=== PATIENT | female | born 1945 | race Caucasian/White ===

== ENCOUNTER 2023-10-22 21:27 | Emergency (ER) | payer MEDICARE, OTHER, SELFPAY ==
--- NOTE | 2023-10-22 21:30 | RT.EKG_ITS ---
APPROVED REPORT Exam: Resting ECG Reason for Exam: NOSE BLEED Patient Location: E HR:81 bpm ECG Measurements Heart Rate 81 AXIS SD 146 P -10 QRSd 79 QRS 7 QT 390 T 40 QTc 455 Conclusion Sinus rhythm...normal P axis, V-rate 60- 99 Consider left ventricular hypertrophy...(R aVL+S V3) >2.20mV Physician: no stemi
[2023-10-22 21:42] VITALS: BP 160/75; PULSE 82; RESP 16; TEMP 36.2; O2SAT 98
--- NOTE | 2023-10-22 22:00 | DI.CT_ITS ---
Exam(s) CT HEAD CERV SPINE FACIAL WO EXAM: CT HEAD CERV SPINE FACIAL WO CLINICAL HISTORY: fall, hit nose, r/o bleed/fx. TECHNIQUE: Imaging Protocol: Axial computed tomography images with coronal and sagittal reformatted images were created and reviewed COMPARISON: No exams were available for comparison FINDINGS: CT Head: Ventricles and Extra axial spaces: Normal in size and morphology for the patient's age. Hemorrhage: None. Cerebral parenchyma: There are areas of decreased attenuation in the white matter consistent with chr onic microvascular ischemic disease. No acute territorial infarct is seen at this time. Midline shift: None. Brainstem/Cerebellum: Normal. Calvarium: Normal. Visualized Paranasal sinuses/Mastoids: Clear. Soft Tissues: Unremarkable. CT Face: Facial Bones: There is a mildly depressed and comminuted nasal bone fracture. Sinuses and Mastoids: Unremarkable. Globes, extraocular muscles, optic nerves and retrobulbar fat: Normal. Upper aerodigestive tract: Normal. Mandible and bilateral temporomandibular joints: Normal. Soft tissues: There is soft tissue swelling seen over the bridge of the nose. CT Cervical Spine: Bones: No acute fracture or subluxation. Age-appropriate degenerative changes are seen in the cervica l spine characterized by joint space narrowing and endplate osteophytes. 1-2 mm anterolisthesis of C 7 on T1 is noted. Soft Tissues: Unremarkable. Lung Apices: Clear. IMPRESSION: 1. No acute intracranial process. 2. No acute fracture or subluxation in the cervical spine. 3. Mildly depressed nasal bone fracture with associated soft tissue swelling. RADIATION DOSE DELIVERED: 1,682.08mGy.cm Total DLP DATA REPOSITORY: All CT scans at this facility are submitted to the National Radiology Data Registry (NRDR) Dose Index Registry (DIR) with the [employer] (A[employer]). RADIATION OPTIMIZATION: All CT scans at this facility use at least one of these dose optimization te chniques: automated exposure control; mA and/or kV adjustment per patient size (includes targeted exa ms where dose is matched to clinical indication); or iterative reconstruction.
--- NOTE | 2023-10-22 22:22 | ED.GENADUL_ITS ---
Discharge Plan Disposition Patient Disposition: Home Condition: Good Discharge Details Clinical Impression: Closed fracture nasal bone, Fall, Laceration of nose Primary Care Provider: Giuseppe Jordan ED Provider: Gavin Cleaning Home Meds and New Rx's Prescriptions: No Action cholecalciferol (vitamin D3) 50 mcg (2,000 unit) capsule 50 mcg PO DAILY biotin 5,000 mcg tablet,chewable PO DAILY elderberry fruit 200 mg capsule 200 mg PO DAILY ascorbic acid (vitamin C) 250 mg tablet 250 mg PO DAILY calcium carbonate [Calcium 500] 500 mg calcium (1,250 mg) tablet,chewable 500 mg PO DAILY cyanocobalamin (vitamin B-12) 1,000 mcg capsule 1,000 mcg PO DAILY vitamin E (dl, acetate) 180 mg (400 unit) capsule 180 mg PO DAILY multivitamin Tablet 1 tab PO DAILY zinc gluconate 10 mg lozenge 15 mg PO DAILY Qty: 100 0RF aspirin 81 mg tablet,delayed release (DR/EC) 81 mg PO DAILY Discharge Instructions Instructions: Nasal Fracture (ED) Additional Instructions: At this time you have evidence of a broken nose. This will take a few weeks to heal. Do not blow your nose. Please take the brief course of Keflex antibiotic as directed on the bottle. Please take Tylenol as needed for pain. A single suture was placed in the laceration on your nose. This will fall out on its own in about 7 to 10 days. Please keep the area clean and dry. Monitor closely for any redness, drainage or discharge. For long-term scar cosmesis, please make sure to avoid any sun to the area for the next year. Apply moisturizer or vitamin E to the area twice daily for the next 12 months for the best chance of wound/scar medication. Please take a daily multivitamin as well as this can help in wound healing. Additionally there was evidence of chronic problems/infections noted in your teeth. Please follow-up closely with your dentist for management of this. If you notice any worsening of your symptoms, or any new symptoms such as vomiting, diarrhea, fever, chills, shortness of breath, chest pain, numbness, weakness, or fainting , please return immediately to the emergency department for reevaluation. Please follow up with your primary care provider as soon as possible for reassessment and reevaluation. As always, it was a pleasure participating in your medical care today. Referrals: Giuseppe Jordan NP [Primary Care Provider] - [facility] General Date/Time Provider Initiated Documentation: 10/22/23 22:[address] [facility] Narrative: This is a 77-year-old female with no significant past medical history who does take multiple vitamins but does not take any aspirin anymore or any other blood thinners who presents today for evaluation after fall. Patient states that she was at [employer]. when she took a misstep, fell forward and landed right on her nose and her glasses. Her hands were hit in her pockets at the time, and so she was not able to catch her fall at all. She recalls the entire event, and denies any loss of consciousness. She denies any significant head pain but does admit to some mild nose soreness. No vision changes, no chest abdomen or extremity pain. She did scrape up her knees slightly, but denies any pain in that area. No other complaints at this time. No other modifying factors. Patient's last tetanus was within the last 5 years. Related Data Home Medications Medication Instructions Recorded Confirmed ascorbic acid (vitamin C) 250 mg 250 mg PO DAILY 05/16/23 08/09/23 tablet aspirin 81 mg tablet,delayed 81 mg PO DAILY 05/16/23 08/09/23 release biotin 5,000 mcg chewable tablet mcg PO DAILY 05/16/23 08/09/23 calcium carbonate (Calcium 500) 500 mg PO DAILY 05/16/23 08/09/23 cholecalciferol (vitamin D3) 50 50 mcg PO DAILY 05/16/23 08/09/23 mcg (2,000 unit) capsule cyanocobalamin (vitamin B-12) 1,000 mcg PO DAILY 05/16/23 08/09/23 1,000 mcg capsule elderberry fruit 200 mg capsule 200 mg PO DAILY 05/16/23 08/09/23 multivitamin 1 tab PO DAILY 05/16/23 08/09/23 vitamin E (dl, acetate) 180 mg 180 mg PO DAILY 05/16/23 08/09/23 (400 unit) capsule zinc gluconate 10 mg lozenges 15 mg PO DAILY #100 ea 05/16/23 08/09/23 Previous Rx's Medication Instructions Recorded zinc gluconate 10 mg lozenges 15 mg PO DAILY #100 ea 12/28/23 Allergies Allergy/AdvReac Type Severity Reaction Status Date / Time No Known Allergies Allergy Verified 10/22/23 22:56 General Stated Complaint: Fall/Non TraumaCriteria RORY: 3 Review of Systems All systems reviewed & are unremarkable except as noted in HPI and below Exam Narrative Exam Narrative: 1.Const: Well-nourished, Well-developed, appearing stated age 2.Eyes: PERRL, no conjunctival injection, and symmetrical lids. 3.ENT: Atraumatic external ears. Moist MM. Neck: Symmetric, trachea midline, No thyromegaly. There is no evidence of raccoon eyes, valencia sign, CSF rhinorrhea, mastoid tenderness, cranial crepitus, hemotympanum, exophthalmos, or hyphema. Patient demonstrates intact dentition with no signs of tooth avulsion or fracture, no signs of jaw deformity, no evidence of a LeFort's fracture, with an intact palate, nose and orbital region. There is no evidence of a nasal septal hematoma that I can visualize. No proptosis. Jaw closes symmetrically. Airway is clear. There is evidence of trauma to the nasal bridge with a small abrasion with laceration that is about 5 mm in diameter. Notable swelling and tenderness over the nose and the bridge of the nose. No other lacerations of the face or scalp or eyes. 4.CVS: Regular rate and rhythm, Normal s1 and s2. No murmurs, carotid bruits, rubs, or gallops. Radial pulses 2+ bilaterally and symmetric. Dorsalis pedis pulses 2+ bilaterally and symmetric. 2+ capillary refill. No evidence of distant heart sounds. No extremity edema. No evidence of gross hemorrhage. 5.RESP: Airway clear, no obstructions. No abrasions or ecchymosis. Chest movement symmetric with respirations. No chest wall tenderness. Trachea midline. No crepitus. No step offs. No paradoxical movements. Lungs are clear to auscultation bilaterally. No rales, rhonchi, wheezing or stridor. Breath sound symmetric. No Sucking chest wounds. No clinical evidence of significant chest trauma. 6.GI: Soft, nondistended, nontender. Bowel tones normoactive. No masses or organomegaly. No ecchymosis or abrasions. No periumbilical ecchymosis or seatbelt sign. No flank or CVA tenderness. No clinical signs of significant trauma. No clinical evidence of significant abdominal trauma. 7.MSK: No gross deformities or discolorations or lesions. Tolerates full range of motion of extremities without tenderness. All compartments of upper and lower extremities are soft with no tenderness. Vascular exam demonstrates brisk capillary refill and intact pulses in all extremities. Pelvic exam demonstrates a stable pelvis, nontender to lateral compression and palpation of symphysis pubis.. No clinical evidence of significant musculoskeletal trauma. 8.Skin: Warm, Dry. No rashes or lesions. Minimal abrasions over the knees. 9.Neuro: orchestra teacher II-XII grossly intact. Sensation grossly intact, no focal neurologic deficits. 10.Psych: (AAO) x3. Appropriate mood and affect Course Vital Signs Vital signs: Vital Signs Temperature 36.2 C L 10/22/23 21:42 Pulse 82 10/22/23 21:42 Respiratory Rate 16 10/22/23 21:42 Blood Pressure 160/75 H 10/22/23 21:42 Pulse Oximetry 98 10/22/23 21:42 Temperature 36.2 C L 10/22/23 21:42 Temperature Source Skin 10/22/23 21:42 Pulse 82 10/22/23 21:42 Respiratory Rate 16 10/22/23 21:42 Respiratory Effort Normal, Non-Labored 10/22/23 21:48 Blood Pressure 160/75 H 10/22/23 21:42 Blood Pressure Position Sitting 10/22/23 21:42 Pulse Oximetry 98 10/22/23 21:42 Oxygen Delivery Method Room Air 10/22/23 21:42 Oxygen Flow Rate 0 10/22/23 21:42 Pain Level 5 10/22/23 21:42 Procedures Laceration Laceration 1: Site: face Size (cm): 0.5 Description: linear Depth: simple, single layer Local Anesthetic: Lidocaine 1% and with Epi Amount of anesthesia used (mL): 2 Pre-repair: wound explored, irrigated extensively and deep structures intact Skin layer closed with: other (Chromic Gut) Size (cm): 5-0 Number of sutures: 1 Medical Decision Making This is a 77-year-old female with no significant past medical history who does take multiple vitamins but does not take any aspirin anymore or any other blood thinners who presents today for evaluation after fall. Patient states that she was at [employer] when she took a misstep, fell forward and landed right on her nose and her glasses. Her hands were hit in her pockets at the time, and so she was not able to catch her fall at all. She recalls the entire event, and denies any loss of consciousness. She denies any significant head pain but does admit to some mild nose soreness. No vision changes, no chest abdomen or extremity pain. She did scrape up her knees slightly, but denies any pain in that area. No other complaints at this time. No other modifying factors. Patient's last tetanus was within the last 5 years. Exam demonstrates evidence of swelling, hematoma contusion and a small abrasion with laceration on the bridge of the nose. Minimal abrasions over the knees, but no other evidence of trauma. No cervical thoracic or lumbar spine tenderness. Due to the patient's age and mechanism we will get a CT scan of the head, face and cervical spine, we will suture her laceration, monitor closely and reassess. [address] scan of the head negative for acute process per the brain. Mild hematomas noted, fractured nose/nasal bone. Poor dentition with some periapical abscesses that are present on CT, however on exam I do not see evidence of Ludewig's angina or large periapical abscess needing drainage. Patient does have poor dentition which is present on exam, however she does have an appointment with her dentist coming up in the next few weeks. She will continue to follow with them. No other acute process otherwise. Single simple interrupted suture was placed with absorbable stitches on the patient's brow. Patient tolerated this well. She was able to stand and ambulated well throughout the department, no focal neurologic deficits on reassessment. Patient will be discharged home. Discussed red flags which return. Plan of care family FINDINGS: Brain: Basal ganglia calcification is present. This may be physiologic. Other considerations are prior infection, thyroid/parathyroid disease or inherited metabolic conditions. There is mild diffuse heterogeneity of the white matter attenuation, consistent with chronic white matter microangiopathic ischemic changes. There is mild diffuse cerebral atrophy present. There is no evidence of intracranial hemorrhage. There is no evidence of acute intracranial injury or other pathologic process. There is no evidence of an acute ischemic event. Cerebral ventricles: The ventricular system demonstrates mild diffuse compensatory enlargement. Paranasal sinuses: There is no evidence of fluid levels, mucoperiosteal thickening, or opacification to suggest acute or chronic sinusitis. Mastoid air cells: The mastoid aircells are normal. Orbital cavities: The orbits are normal without evidence of fracture. There is no evidence of retrobulbar hemorrhage. There is no evidence of globe or lens injury. Bones: The bony cranium shows no evidence of injury or other acute pathologic processes. Soft tissues: Mild soft tissue scalp swelling at the left frontal/superior temporal region. IMPRESSION: 1. No evidence of an acute intracranial abnormality. 2. There is mild age-related atrophy and chronic white matter ischemic changes, with compensatory ventricular dilation. 3. Mild soft tissue scalp swelling at the left frontal/superior temporal region FINDINGS: Orbital cavities: There are drusen present at the orbits bilaterally. The orbits are normal without evidence of fracture. There is no evidence of retro-bulbar hemorrhage. There is no evidence of globe or lens injury. Paranasal sinuses: There is no evidence of fluid levels, mucoperiosteal thic kening, or opacification to suggest acute or chronic sinusitis. Mastoid air cells: The mastoid aircells are normal. Dental: There is poor dentition with multiple teeth missing. There is a periapical abscess present within the last molar the right lower alveolar ridge. Additional periapical abscess present within the right upper alveolar ridge image 32 series 13. There are active dental caries present. Bones: There is a minimally displaced fracture of the nasal bones. No evidence of fractures of the remaining, facial bones or mandible. The TMJs are articulated. Soft tissues: There is nasal and perinasal soft tissue swelling present. There is perioral and anterior mandibular soft tissue swelling present. IMPRESSION: 1. There is a minimally displaced fracture of the nasal bones. 2. There is nasal and perinasal soft tissue swelling present. 3. There is perioral and anterior mandibular soft tissue swelling present. 4. No evidence of fractures of the remaining, facial bones or mandible. 5. There is poor dentition with multiple teeth missing. There is a periapical abscess present within the last molar the right lower alveolar ridge. Additional periapical abscess present within the right upper alveolar ridge image 32 series 13. There are active dental caries present. FINDINGS: Bones: There is no evidence of acute vertebral body element or posterior vertebral element fracture. The anterior posterior borders of the vertebral bodies are in good alignment. No evidence of acute subluxation. No evidence of acute compression fractures. There are moderate to severe degenerative changes of the cervical spine. [id number] neurforaminal narrowing secondary to degenerative changes present. Mild narrowing of the central spinal canal secondary to degenerative changes. There is no evidence of acute disc injury. The spinal canal and cord are otherwise normal. The visualized portions of the skull base and brain are unremarkable. Lungs: The visualized portions of the lung apices are unremarkable. Lymph nodes: There is no evidence of lymphadenopathy. Soft tissues: The prevertebal, paravertebral, pharyngeal, hypopharyngeal, and laryngeal soft tissue structures are unremarkable. IMPRESSION: 1. There is no evidence of acute vertebral body element or posterior vertebral element fracture. 2. The anterior posterior borders of the vertebral bodies are in good alignment. No evidence of acute subluxation. 3. There are moderate to severe degenerative changes of the cervical spine. 4. There is no evidence of acute disc injury. Thank you for allowing us to participate in the care of your patient. Dictated and Authenticated by: Kemar Ruth MD 10/22/2023 11:14 PM Eastern Time ([place] & [place]) Quality:SDOH Health Related Social Needs: Health related social needs inadequate housing Health related social needs details N/A PFSH All Active Problems (Updated 10/22/23 @ 23:30 by Gavin Cleaning DO) Laceration of nose (Acute) Fall (Acute) Closed fracture nasal bone (Acute) Tremor of both hands (Acute) Family History Mother Dementia Father Dementia Brother Cancer Son Alcohol use disorder Social History Smoking/Tobacco Use Status: Never Second Hand Exposure: No Smoking risk assessment performed?: Yes Alcohol Intake: never Drug use: Never Substance use type: does not use Adopted: No Caregiver/Support person: No Foster care: No Household members: none Housing: apartment Number of Children: 1 number of grandchildren: 7 Communication Needs: None Education Level: college Details: 2 years Do you need help understanding health information?: Never current occupation: Retired/ house keeper Pets and animals: No Sexually active: No Do you think of yourself as: straight/heterosexual Current gender identity: female What is your relationship status?: How often do you talk on the phone with friends or family?: three or more times per week How often do you get together with friends or relatives?: three or more times per week How often do you attend bahai or religion services?: decline to answer Do you belong to any clubs or organized social groups?: yes Panel score (0-1 are the most socially isolated patients): 2 What type of physical activity do you participate in: regular exercise and other Details: Ballet Duration: 45-60 minutes/day Frequency: 3-4 times per week Aziza/Restorationist: Non sabianist Special aziza needs: No Agree to transfusion: Yes Seatbelt use: always Helmet use: No Drive intox or ride w/intox intermodal owner operator truck driver: No Working smoke detector in home: Yes Firearms in home: No Do you feel safe at home: Yes Do you feel safe in your relationship?: Yes Victim of physical abuse: No Victim of emotional abuse: No Victim of sexual abuse: No Would you like helpful sources: No
[2023-10-22] MEDS: Lidocaine/Epinephri/Tetracaine Topical Gel 3 ML TP (22:24)
--- NOTE | 2023-10-22 23:14 | DI.VRAD_ITS ---
PROCEDURE INFORMATION: Exam: CT Head Without Contrast Exam date and time: 10/22/2023 10:40 PM Age: 77 years old Clinical indication: Injury or trauma; Blunt trauma (contusions or hematomas); Consciousness not specified; Injury date: 10/22/23; Injury details: Fall, hit nose, R/O bleed, FX TECHNIQUE: Imaging protocol: Computed tomography of the head without contrast. Radiation optimization: All CT scans at this facility use at least one of these dose optimization techniques: automated exposure control; mA and/or kV adjustment per patient size (includes targeted exams where dose is matched to clinical indication); or iterative reconstruction. COMPARISON: No relevant prior studies available. FINDINGS: Brain: Basal ganglia calcification is present. This may be physiologic. Other considerations are prior infection, thyroid/parathyroid disease or inherited metabolic conditions. There is mild diffuse heterogeneity of the white matter attenuation, consistent with chronic white matter microangiopathic ischemic changes. There is mild diffuse cerebral atrophy present. There is no evidence of intracranial hemorrhage. There is no evidence of acute intracranial injury or other pathologic process. There is no evidence of an acute ischemic event. Cerebral ventricles: The ventricular system demonstrates mild diffuse compensatory enlargement. Paranasal sinuses: There is no evidence of fluid levels, mucoperiosteal thickening, or opacification to suggest acute or chronic sinusitis. Mastoid air cells: The mastoid aircells are normal. Orbital cavities: The orbits are normal without evidence of fracture. There is no evidence of retro-bulbar hemorrhage. There is no evidence of globe or lens injury. Bones: The bony cranium shows no evidence of injury or other acute pathologic processes. Soft tissues: Mild soft tissue scalp swelling at the left frontal/superior temporal region. IMPRESSION: 1. No evidence of an acute intracranial abnormality. 2. There is mild age-related atrophy and chronic white matter ischemic changes, with compensatory ventricular dilation. 3. Mild soft tissue scalp swelling at the left frontal/superior temporal region. PROCEDURE INFORMATION: Exam: CT Maxillofacial Without Contrast Exam date and time: 10/22/2023 10:40 PM Age: 77 years old Clinical indication: Injury or trauma; Blunt trauma (contusions or hematomas); Consciousness not specified; Injury date: 10/22/23; Injury details: Fall, hit nose, R/O bleed, FX TECHNIQUE: Imaging protocol: Computed tomography of the face without contrast. Radiation optimization: All CT scans at this facility use at least one of these dose optimization techniques: automated exposure control; mA and/or kV adjustment per patient size (includes targeted exams where dose is matched to clinical indication); or iterative reconstruction. COMPARISON: No relevant prior studies available. FINDINGS: Orbital cavities: There are drusen present at the orbits bilaterally. The orbits are normal without evidence of fracture. There is no evidence of retro-bulbar hemorrhage. There is no evidence of globe or lens injury. Paranasal sinuses: There is no evidence of fluid levels, mucoperiosteal thickening, or opacification to suggest acute or chronic sinusitis. Mastoid air cells: The mastoid aircells are normal. Dental: There is poor dentition with multiple teeth missing. There is a periapical abscess present within the last molar the right lower alveolar ridge. Additional periapical abscess present within the right upper alveolar ridge image 32 series 13. There are active dental caries present. Bones: There is a minimally displaced fracture of the nasal bones. No evidence of fractures of the remaining, facial bones or mandible. The TMJs are articulated. Soft tissues: There is nasal and perinasal soft tissue swelling present. There is perioral and anterior mandibular soft tissue swelling present. IMPRESSION: 1. There is a minimally displaced fracture of the nasal bones. 2. There is nasal and perinasal soft tissue swelling present. 3. There is perioral and anterior mandibular soft tissue swelling present. 4. No evidence of fractures of the remaining, facial bones or mandible. 5. There is poor dentition with multiple teeth missing. There is a periapical abscess present within the last molar the right lower alveolar ridge. Additional periapical abscess present within the right upper alveolar ridge image 32 series 13. There are active dental caries present. PROCEDURE INFORMATION: Exam: CT Cervical Spine Without Contrast Exam date and time: 10/22/2023 10:40 PM Age: 77 years old Clinical indication: Injury or trauma; Blunt trauma (contusions or hematomas); Consciousness not specified; Injury date: 10/22/23; Injury details: Fall, hit nose, R/O bleed, FX TECHNIQUE: Imaging protocol: Computed tomography of the cervical spine without contrast. Radiation optimization: All CT scans at this facility use at least one of these dose optimization techniques: automated exposure control; mA and/or kV adjustment per patient size (includes targeted exams where dose is matched to clinical indication); or iterative reconstruction. COMPARISON: No relevant prior studies available. FINDINGS: Bones: There is no evidence of acute vertebral body element or posterior vertebral element fracture. The anterior posterior borders of the vertebral bodies are in good alignment. No evidence of acute subluxation. No evidence of acute compression fractures. There are moderate to severe degenerative changes of the cervical spine. [id number] neurforaminal narrowing secondary to degenerative changes present. Mild narrowing of the central spinal canal secondary to degenerative changes. There is no evidence of acute disc injury. The spinal canal and cord are otherwise normal. The visualized portions of the skull base and brain are unremarkable. Lungs: The visualized portions of the lung apices are unremarkable. Lymph nodes: There is no evidence of lymphadenopathy. Soft tissues: The prevertebal, paravertebral, pharyngeal, hypopharyngeal, and laryngeal soft tissue structures are unremarkable. IMPRESSION: 1. There is no evidence of acute vertebral body element or posterior vertebral element fracture. 2. The anterior posterior borders of the vertebral bodies are in good alignment. No evidence of acute subluxation. 3. There are moderate to severe degenerative changes of the cervical spine. 4. There is no evidence of acute disc injury. Dictated and Authenticated by: Kemar Ruth MD. Ordering:PABLO Alonso MD
[2023-10-22] MEDS: Cephalexin 500 MG CAP, 4 CAPS/BTL PO (23:44)
[2023-10-22 23:45] VITALS: BP 158/72; PULSE 82; RESP 16; TEMP 36.2
== END 2023-10-22 23:45 | disposition home or self-care (01) ==
PROVIDERS: Emergency Provider Student in an Organized Health Care Education/Training Program; PCP Nurse Practitioner Family
DX: S02.2XXA Fracture of nasal bones, initial encounter for closed fracture (principal); S01.21XA Laceration without foreign body of nose, initial encounter; W01.10XA Fall on same level from slipping, tripping and stumbling with subsequent striking against unspecified object, initial encounter
CPT/HCPCS: 12011; 93005; 99284; 70450; 70486; 72125; 93010; 99283